=== PATIENT | female | born 1985 | race Caucasian/White ===

== ENCOUNTER 2021-04-26 12:36 | Outpatient (CLI) | payer BC ==
[2021-04-26 21:14] LABS: SARS-CoV-2 PCR by NAA Not Detected (NotDetected)
== END 2021-04-26 12:37 | disposition home or self-care (01) ==
LOC: CSHLAB 12:36
PROVIDERS: ATTEND Obstetrics & Gynecology
DX: Z01.812 Encounter for preprocedural laboratory examination (principal); Z20.822 Contact with and (suspected) exposure to COVID-19
CPT/HCPCS: U0003; U0005

== ENCOUNTER 2021-05-01 09:38 | Day surgery (SDC) | payer BC ==
[2021-04-29 14:50] VITALS: BMI 22.8
[2021-05-01] MEDS ORDERED: Lidocaine 1% MPF 2 ML VIAL ONE (10:13)
[2021-05-01] MEDS ORDERED: PROPOFOL 40 ML ONE (10:46)
[2021-05-01] MEDS ORDERED: Fentanyl 100 MCG/2 ML VIAL ONE (10:46)
[2021-05-01] MEDS ORDERED: Dexamethasone 4 mg/ml Vial ONE ×2 (10:51→12:25)
[2021-05-01] MEDS ORDERED: Lidocaine 1% PF 5 ML VIAL ONE (10:51)
[2021-05-01] MEDS ORDERED: Ondansetron PF 4 MG/2 ML Vial ONE (10:51)
[2021-05-01 11:03] LABS: Hemoglobin 14.7 g/dL (12.0-15.5); Mean Corpuscular HGB CONC 33.9 g/dL (32.0-36.0); Mean Corpuscular Hemoglobin 29.9 pg (27.0-33.0); Mean Platelet Volume 10.6 fl (7.4-10.4); Platelet Count 157 10x3/uL (150-450); Red Blood Cell (RBC) Count 4.92 10x6/uL (3.90-5.03); White Blood Cell (WBC) Count 5.1 10x3/uL (3.5-10.5)
[2021-05-01] MEDS ORDERED: Midazolam HCl 2 mg/2 ml Vial ONE (12:14)
[2021-05-01] MEDS ORDERED: PHENYLEPHRINE-NS 100 MCG/ML 10 ML SYRINGE ONE (12:29)
[2021-05-01] MEDS ORDERED: Glycopyrrolate 0.2 MG/ML 5 ML SYRINGE ONE (12:29)
== END 2021-05-01 13:50 | disposition home or self-care (01) ==
LOC: CSHSDC 09:38
PROVIDERS: ATTEND Obstetrics & Gynecology
PROC: 10D17ZZ Extraction of Products of Conception, Retained, Via Natural or Artificial Opening (ICD-10-PCS; principal; 2021-05-01)
DX: O02.1 Missed abortion (principal); Z88.0 Allergy status to penicillin; Z88.8 Allergy status to other drugs, medicaments and biological substances
CPT/HCPCS: 36415; 85027; 86850; 86900; 86901; 88305; J1100; J2250; J2405; J2704; J3010

== ENCOUNTER 2023-04-30 05:00 | Inpatient (IN) | payer BC ==
[2023-04-30 06:47] VITALS: BMI 28.8
[2023-04-30] MEDS ORDERED: Promethazine HCl 25 MG/ML VIAL IM PRN (06:47)
[2023-04-30] MEDS ORDERED: hydrALAZINE 20 MG/ML VIAL SLOW IVP PRN ×2 (06:47→19:27)
[2023-04-30] MEDS ORDERED: Oxytocin 30 units/NS 500 ML 500 ML IV SCH ×4 (06:47→19:27)
[2023-04-30] MEDS ORDERED: HYDROcodone/Acetaminophen 5/325 mg Tablet PO PRN ×4 (06:47→19:27)
[2023-04-30] MEDS ORDERED: fentaNYL 50 mcg/mL 1 mL Vial SLOW IVP PRN (06:47)
[2023-04-30] MEDS ORDERED: Ibuprofen 800 MG TAB PO PRN (06:47)
[2023-04-30] MEDS ORDERED: Ondansetron PF 4 MG/2 ML Vial IVP PRN ×2 (06:47→19:27)
[2023-04-30] MEDS ORDERED: Lidocaine 1% (PF) 30 ML VIAL SC PRN (06:47)
[2023-04-30] MEDS: Lactated Ringer's 1,000 ML IV SCH ×2 (07:20→19:33)
[2023-04-30 08:17] LABS: Hematocrit 37.1 % (34.9-44.5); Mean Corpuscular Hemoglobin 31.5 pg (27.0-33.0); Mean Corpuscular Volume 89.8 fl (81.6-98.3); Mean Platelet Volume 11.7 fl (7.4-10.4); Platelet Count 145 10x3/uL (150-450); RBC Distribution Width 13.3 % (11.5-14.5); Red Blood Cell (RBC) Count 4.13 10x6/uL (3.90-5.03); White Blood Cell (WBC) Count 6.1 10x3/uL (3.5-10.5)
[2023-04-30 08:33] LABS: HBSAg Index 0.23 S/CO (0-0.99); Hep B Surf Ag - L&D Non-Reactive S/CO (NonReactive)
[2023-04-30 08:39] LABS: Syphilis Antibody Nonreactive (Nonreactive); Syphilis Antibody Index 0.05 S/CO (<1.00 Non-Reactive)
[2023-04-30] MEDS ORDERED: Dexamethasone 4 mg/ml Vial ONE (11:45)
[2023-04-30] MEDS ORDERED: Ondansetron PF 4 MG/2 ML Vial ONE (11:45)
[2023-04-30] MEDS ORDERED: Glycopyrrolate 0.2 MG/ML 5 ML SYRINGE ONE (11:45)
[2023-04-30] MEDS ORDERED: Ketorolac Tromethamine 30 MG/ML VIAL ONE (11:45)
[2023-04-30] MEDS ORDERED: Oxytocin 10 UNITS/ML VIAL ONE (11:45)
[2023-04-30] MEDS ORDERED: ePHEDrine Sulfate 50 MG/10 ML VIAL ONE (11:45)
[2023-04-30] MEDS ORDERED: Morphine PF 10 MG/10 ML VIAL ONE (11:49)
[2023-04-30] MEDS ORDERED: Tranexamic Acid 1,000 MG/10 ML VIAL ONE (12:07)
[2023-04-30] MEDS ORDERED: Methylergonovine 0.2 MG/ML VIAL ONE (12:53)
[2023-04-30] MEDS ORDERED: Preparation H Ointment 28 GM TUBE PR PRN (19:27)
[2023-04-30] MEDS ORDERED: Bisacodyl 10 MG SUPP PR PRN (19:27)
[2023-04-30] MEDS ORDERED: Milk Of Magnesia 30 ML UDCUP PO PRN (19:27)
[2023-04-30] MEDS ORDERED: diphenhydrAMINE 25 MG CAP PO PRN (19:27)
[2023-04-30] MEDS ORDERED: Boostrix 0.5 ML (Tdap) VIAL (>/=7 yrs of age) IM ONE (19:27)
[2023-04-30] MEDS ORDERED: Lanolin Ointment 7 GM TUBE TOP PRN (19:27)
[2023-04-30] MEDS ORDERED: Ferrous Sulfate 325 MG TAB PO SCH (19:45)
[2023-04-30] MEDS: Docusate 100 MG CAP PO SCH (21:05)
[2023-04-30] MEDS: Ibuprofen 800 MG TAB PO SCH (21:06)
[2023-05-01] MEDS: Ibuprofen 800 MG TAB PO SCH (06:39)
[2023-05-01] MEDS ORDERED: Ferrous Sulfate 325 MG TAB PO SCH (08:00)
[2023-05-01] MEDS ORDERED: Prenatal Vitamin 1 TAB PO SCH (09:00)
[2023-05-01] MEDS: Docusate 100 MG CAP PO SCH (09:17)
[2023-05-01 11:48] VITALS: BP 105/67; TEMP 98.3
== END 2023-05-01 15:25 | disposition home or self-care (01) | DRG 807 ==
LOC: CSHLD 06:06 → CSHPED 15:26
PROVIDERS: ADMIT Obstetrics & Gynecology; ATTEND Obstetrics & Gynecology
PROC: 10907ZC Drainage of Amniotic Fluid, Therapeutic from Products of Conception, Via Natural or Artificial Opening (ICD-10-PCS; principal; 2023-04-30)
PROC: 10E0XZZ Delivery of Products of Conception, External Approach (ICD-10-PCS; 2023-04-30)
PROC: 0KQM0ZZ Repair Perineum Muscle, Open Approach (ICD-10-PCS; 2023-04-30)
DX: O48.0 Post-term pregnancy (principal); Z37.0 Single live birth; Z88.0 Allergy status to penicillin; Z88.8 Allergy status to other drugs, medicaments and biological substances; O70.1 Second degree perineal laceration during delivery; Z3A.40 40 weeks gestation of pregnancy
CPT/HCPCS: 36415; 85027; 86780; 86850; 86900; 86901; 87340; J1100; J1885; J2210; J2274; J2405; J2590; J7120